=== PATIENT | male | born 1990 | race Caucasian/White ===

== ENCOUNTER 2018-01-23 22:38 | Emergency (ER) | payer OTHER ==
[~2018-01-23] VITALS: Ht 175.3 cm; Wt 79.4 kg
== END 2018-01-23 23:47 | disposition home or self-care (01) ==
LOC: ER 22:38
DX: S91.312A Laceration without foreign body, left foot, initial encounter (principal); W45.8XXA Other foreign body or object entering through skin, initial encounter; Y93.89 Activity, other specified; Y92.89 Other specified places as the place of occurrence of the external cause; Y99.8 Other external cause status